=== PATIENT | female | born 1985 | race Caucasian/White ===

== ENCOUNTER 2021-07-19 01:48 | Emergency (ER) | payer MEDICAID ==
[~2021-07-19] VITALS: Ht 149.9 cm; Wt 49.9 kg
[2021-07-19 02:19] VITALS: BP_SYST 120
--- NOTE | 2021-07-19 02:40 | NUR ---
Patient to ER bed 8 to gown for evaluation. Side rails up.
--- NOTE | 2021-07-19 02:45 | NUR ---
Dr. Greenberg bedside for pt eval
[2021-07-19] MEDS ORDERED: LIDOCAINE/EPI 1% 1:100000 20 ML VIAL INJ ONE (03:00)
--- NOTE | 2021-07-19 03:00 | NUR ---
Pt BIB family to ED C/O severe pain,redness and inflammation to left AC x 3 days. Admits to using meth. VSS no s/s of acute distress Resting on gurney rails up
--- NOTE | 2021-07-19 03:05 | NUR ---
VSS no s/s of acute distress Resting in comfort on gurney
--- NOTE | 2021-07-19 03:10 | NUR ---
Portable X ray at bedside, well tolerated
--- NOTE | 2021-07-19 04:45 | NUR ---
Pt verbalized wish to not wait any longer. before ED staff can make AMA form available, pt eloped from ED out the door
== END 2021-07-19 04:45 | disposition home or self-care (01) ==
LOC: SED 01:48
DX: L02.414 Cutaneous abscess of left upper limb (principal)
CPT/HCPCS: 99283